=== PATIENT | male | born 1995 | race Caucasian/White ===

== ENCOUNTER 2016-11-04 20:18 | Emergency (ER) | payer BC ==
--- NOTE | 2016-11-04 21:02 | UC ---
Complaint Male HPI - HPI Summary HPI Summary: 20 yo male with dysuria and burning of penis for minutes after urination had unprotected sex recently no hx STD - History of Current Complaint Chief Complaint: UCGU Stated Complaint: URINARY Time Seen by Provider: 11/04/16 20:50 Onset/Duration: Gradual Onset, Lasting Hours Timing: Constant Severity Initially: Moderate Severity Currently: Mild Pain Intensity: 1 Location: Penis Character: Burning Aggravating Factor(s): Voiding Associated Signs And Symptoms: Negative: Diaphoresis, Back Pain, Fever, Hematuria, Dysuria, Constipation, Blood in Stool, Rectal Pain, Appetite, Nausea , Vomiting(# Of Episodes =), Penile Swelling, Penile Discharge - Allergies/Home Medications Allergies/Adverse Reactions: Allergies Allergy/AdvReac Type Severity Reaction Status Date / Time No Known Allergies Allergy Verified 11/04/16 20:43 PMH/Surg Hx/FS Hx/Imm Hx Previously Healthy: Yes - Surgical History Surgical History: None - Family History Known Family History: Negative: Cardiac Disease, Hypertension, Diabetes - Social History Alcohol Use: Weekly Substance Use Type: None Smoking Status (MU): Current Some Day Smoker Type: Cigarettes Amount Used/How Often: occasional use Review of Systems Constitutional: Negative Skin: Negative Eyes: Negative ENT: Negative Respiratory: Negative Cardiovascular: Negative Gastrointestinal: Negative Genitourinary: Dysuria, Urgency Motor: Negative Neurovascular: Negative Musculoskeletal: Negative Neurological: Negative Psychological: Negative All Other Systems Reviewed And Are Negative: Yes Physical Exam Triage Information Reviewed: Yes Appearance: Well-Appearing, No Pain Distress, Well-Nourished Vital Signs: Initial Vital Signs Temp 99.0 F 11/04/16 20:44 Pulse 74 11/04/16 20:44 Resp 16 11/04/16 20:44 BP 131/62 11/04/16 20:44 Pulse Ox 98 11/04/16 20:44 Vital Signs Reviewed: Yes Eyes: Positive: Conjunctiva Clear ENT: Positive: Hearing grossly normal. Negative: Nasal congestion, Nasal drainage, Trismus, Muffled/hoarse voice Dental: Negative: Gross Decay/Caries @, Dental Fracture @ Neck: Positive: Supple Respiratory: Positive: Lungs clear, Normal breath sounds, No respiratory distress, No accessory muscle use Cardiovascular: Positive: RRR, No Murmur Abdomen Description: Positive: Other: - testicle non tender/circumcised/no urethral d/c, no ulcerations. Negative: CVA Tenderness (R), CVA Tenderness (L) Musculoskeletal: Positive: ROM Intact, No Edema Neurological: Positive: Alert Psychological Exam: Normal Skin Exam: Normal Complaint Male Course/Dx - Differential Dx/Diagnosis Provider Diagnoses: urethritis Discharge - Discharge Plan Condition: Stable Disposition: HOME Patient Education Materials: Nonspecific Urethritis in Men (ED) Referrals: [facility] [Outside] - 2 Weeks (your BP was little high (pre hypertensive range) and should be followed by a primary school teacher librarian) Additional Instructions: tests pending recheck in 4-5 days if not better
[2016-11-04] MEDS ORDERED: cefTRIAXone VIAL(*) 250 MG VIAL IM ONE (21:07)
[2016-11-04] MEDS ORDERED: Azithromycin TAB* 250 MG PO ONE (21:08)
[2016-11-04] MEDS ORDERED: Lidocaine 1%* 5 ML VIAL ONE (21:27)
[2016-11-04 21:54] VITALS: BP 129/72
== END 2016-11-04 22:00 | disposition home or self-care (01) ==
LOC: UCCORT 20:18
DX: N34.2 Other urethritis (principal); Z72.0 Tobacco use
CPT/HCPCS: 81003; 87491; 87591; 96372; 99212; A9270-GY; G0463; J0696